=== PATIENT | male | born 1965 | race Caucasian/White ===

== ENCOUNTER 2018-06-15 14:40 | Inpatient (IN) | payer MEDICARE ==
[~2018-06-15] VITALS: Ht 182.9 cm; Wt 78.0 kg
--- NOTE | ~2018-06-15 | OP ---
PATIENT NAME: MINESH KOHLER MEDICAL RECORD: [id number] :65 LOCATION:D. D.2133 ADMISSION DATE:06/15/18 SURGEON: LAINEY SHANKAR MD DATE OF OPERATION: 06/20/2018 PREOPERATIVE DIAGNOSES: 1. 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 2. End-stage renal disease and dependence on hemodialysis. POSTOPERATIVE DIAGNOSES: 1. 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 2. End-stage renal disease and dependence on hemodialysis. OPERATION PERFORMED: Removal of Trialysis acute dialysis catheter from the right internal jugular vein and insertion of a 19-cm HemoSplit catheter via the right internal jugular vein under fluoroscopy with positioning the tip of the catheter in the right atrium. Examination of the left arm wound from recent surgery, removal of sutures, and ultrasound examination. SURGEON: Lainey Shankar MD ANESTHESIA: General per SU[employer]ACH. PREOPERATIVE NOTE: Mr. Kohler is a patient of Dr. Chicas in [place]. He has an Acuseal PTFE AV graft, brachial axillary in the left arm, which I implanted in August of last year. He had developed an area of ulceration and induration over the mid portion of his graft and was referred to Dr. Judge at [facility]. Dr. Judge placed a Trialysis catheter in the right internal jugular vein and then very shortly after that addressed the fistula when it ruptured at the site of ulceration. I cannot obtain any records from [facility], which describe exactly what Dr. Judge did to the fistula. There is no operative note. I assume that he removed the ruptured segment and probably ligated or closed the graft proximal and distal to that, but I do not know for certain. At this time, there is no evidence visually or palpably of residual infection or fluid collections in the area. The wound appears to be healing well. Under anesthesia in supine position, the patient was prepped and draped in sterile manner. I removed the Trialysis catheter over a guidewire under fluoroscopy and passed dilators over the guidewire. I chose a 19-cm HemoSplit catheter and identified a satisfactory exit site below the clavicle and pulled the catheter through a subcutaneous tunnel up to the cervical incision and then I inserted a dilator peel-away sheath and then lastly the HemoSplit catheter was inserted and its tip positioned in the right atrium and the Dacron felt cuff midway in the subcutaneous tunnel. The catheter was accessed. Both lumens returned blood easily. They flushed quite easily with saline as well and they were heparin locked with 100 unit per cc heparin. The catheter was sutured to the skin near the entry site with 2-0 Prolene. The cervical incision was closed with a single interrupted inverted 3-0 Vicryl and Dermabond glue and it was dressed with Maxorb Ag, Tegaderm, and Cavilon skin prep. The catheter exit site was dressed with a chlorhexidine Biopatch and a standard CVL dressing. Next, attention was turned to the left arm. The sutures were removed and the residual wound examined closely. It was just a shallow area granulated wound, which is not yet epithelialized. It appears to be healing well and there is no evidence of infection. There is no significant palpable induration or sign of OPERATIVE REPORT [id number] MINESH KOHLER fluid collections. I then examined the fistula with a duplex ultrasound and noted that there was about a 10 cm length of AV graft that was underlying the healing incision. That segment is absent and I assume was totally removed by Dr. Judge. The venous and arterial limbs remain in place and there is no flow. The arterial limb is seen taking origin from the cuff of an old brachiocephalic fistula, so there is a nice venous cuff therefore new graft to take origin from. The venous anastomosis was easily seen where the PTFE is attached to the axillary vein. I then dressed the area of ulceration with Maxorb Ag, Tegaderm, and Cavilon skin prep and the patient was awakened and taken to the recovery room. PLAN: The patient should continue his present course of vancomycin and may go home when okay with nephrology. He will be dialyzing for the next while several weeks with his new HemoSplit catheter. When his Zosyn is discontinued, he can be started on chronic tetracycline therapy. I would like him to be discharged on doxycycline 50 mg once daily for an indefinite period of time as one might treat an acne patient. I also want him to bathe daily with Hibiclens and wash the area of the wound to the left arm with Hibiclens daily for 2 weeks. I told him to apply Bactroban ointment to his nares and to the wound b.i.d. I would like to see him back in my office in 3 weeks and hopefully at that time, his MRSA screen will be negative and we can admit him or bring him back to the operating room for a new access procedure. I think his next access will likely be a biologic such as a ProCol or Artegraft placed in the left arm with the arterial anastomosis to the old cephalic vein cuff and the venous anastomosis as close as possible to the axillary vein itself as I want to remove all of the remaining original PTFE graft. Blood loss during the operation was trivial about 5 cc, was unreplaced. Sponges, instruments and needles were accounted for. No drain was used and no surgical specimen was submitted for histopathology, but the tip of the Trialysis catheter was sent for culture. TRANSINT:[id number] Voice Confirmation ID: [id number] DOCUMENT ID: [id number] LAINEY SHANKAR MD at 1054 CC: LUIS QUICK MD [id number] DICTATION DATE: 06/20/18 1410 CLINICAL TRIAL ASSISTANT: 06/20/18 1441 DIS IN 06/21/18 [facility] [address] [place] [address]
[~2018-06-15 14:40] MED LIST: AVODART0.5 MG PO; COREG25 MG PO; COZAAR100 MG PO; FLOMAX0.4 MG PO; HYDRALAZINE HCL25 MG PO; HYDRALAZINE HCL50 MG PO; LIPITOR80 MG PO; MEGACE40 MG PO; NORVASC10 MG PO; OMEPRAZOLE40 MG PO; PHOSLO667 MG PO; PROTONIX40 MG PO; SENSIPAR30 MG PO; XALATAN 0.0052.5 ML EACH EYE; ZANTAC300 MG PO; ZITHROMAX250 MG PO; ZYLOPRIM100 MG PO
[2018-06-15 17:32] VITALS: BP 174/96; BMI 24.4
[2018-06-15 20:39] VITALS: BP 179/87
[2018-06-16] VITALS: BP 151/83
[2018-06-16 04:00] VITALS: BP 145/89
[2018-06-16 05:45] LABS: BASOPHILS 0.4 % (0-2); EOSINOPHILS 3.3 % (0-7); HEMATOCRIT 23.7 % (42.0-54.0); HEMOGLOBIN 7.8 g/dL (13.5-17.5); IMMATURE GRANULOCYTES 0.4 % (0-5); LYMPHOCYTES 15.7 % (15-50); MCH 25.7 pg (26.0-34.0); MCHC 32.9 g/dL (31.0-37.0); MEAN PLATELET VOLUME 9.5 fL (7.4-10.4); MONOCYTES 10.3 % (2-11); NEUTROPHILS 69.9 % (40-80); PLATELET COUNT 211 10x3/uL (130-400); RBC 3.04 10x6/uL (4.20-6.10); RDW 15.5 % (11.5-14.5); WBC 8.3 10x3/uL (4.8-10.8)
[2018-06-16 06:20] LABS: ANION GAP 18.4 mmol/L (8-16); CALCIUM 8.4 mg/dL (8.5-10.1); CARBON DIOXIDE 24.6 mmol/L (21.0-32.0); CREATININE - SERUM 12.8 mg/dL (0.6-1.3); VANCOMYCIN - RANDOM 34.4 ug/mL (10.0-20.0)
[2018-06-16 06:36] LABS: PHOSPHOROUS 11.3 mg/dL (2.5-4.9)
[2018-06-16 08:36] VITALS: BP 160/85
[2018-06-16 12:33] VITALS: BP 154/81
[2018-06-16 13:51] VITALS: BMI 23.8
[2018-06-16 17:21] VITALS: BP 156/90
[2018-06-16 21:09] VITALS: BP 165/94
[2018-06-17 05:50] VITALS: BP 154/90
[2018-06-17 06:20] LABS: BASOPHILS 0.7 % (0-2); EOSINOPHILS 3.9 % (0-7); HEMATOCRIT 25.3 % (42.0-54.0); HEMOGLOBIN 8.1 g/dL (13.5-17.5); IMMATURE GRANULOCYTES 0.3 % (0-5); LYMPHOCYTES 16.9 % (15-50); MCH 25.5 pg (26.0-34.0); MCV 79.6 fL (80.0-100.0); MEAN PLATELET VOLUME 8.8 fL (7.4-10.4); MONOCYTES 10.1 % (2-11); NEUTROPHILS 68.1 % (40-80); PLATELET COUNT 210 10x3/uL (130-400); RBC 3.18 10x6/uL (4.20-6.10); RDW 15.6 % (11.5-14.5); WBC 7.1 10x3/uL (4.8-10.8)
[2018-06-17 06:54] LABS: ALBUMIN 2.4 g/dL (3.4-5.0); ANION GAP 13.8 mmol/L (8-16); BILIRUBIN - TOTAL 0.34 mg/dL (0.2-1.3); CALCIUM 8.6 mg/dL (8.5-10.1); CARBON DIOXIDE 24.9 mmol/L (21.0-32.0); CREATININE - SERUM 11.1 mg/dL (0.6-1.3); POTASSIUM - SERUM 4.7 mmol/L (3.5-5.1); PROTEIN - SERUM 7.6 g/dL (6.4-8.2)
[2018-06-17 06:56] LABS: PHOSPHOROUS 10.1 mg/dL (2.5-4.9)
[2018-06-17 07:30] LABS: % SATURATION 22 % (15-55); IRON 32 ug/dl (35-150); TOTAL IRON BIND CAPACITY 140 ug/dl (260-445); UNSAT IRON BIND CAPACITY 108 ug/dl (150-375)
[2018-06-17 08:25] VITALS: BP 166/90
[2018-06-17 11:38] VITALS: BP 147/83
[2018-06-17 15:22] VITALS: BP 168/91
[2018-06-17 20:22] VITALS: BP 145/84
[2018-06-18] VITALS: BP 158/96
[2018-06-18 06:35] VITALS: BP 166/89
[2018-06-18 06:49] LABS: BASOPHILS 0.8 % (0-2); EOSINOPHILS 3.8 % (0-7); HEMATOCRIT 24.3 % (42.0-54.0); HEMOGLOBIN 7.8 g/dL (13.5-17.5); IMMATURE GRANULOCYTES 0.4 % (0-5); LYMPHOCYTES 19.1 % (15-50); MCH 25.4 pg (26.0-34.0); MCHC 32.1 g/dL (31.0-37.0); MCV 79.2 fL (80.0-100.0); MEAN PLATELET VOLUME 8.7 fL (7.4-10.4); MONOCYTES 9.6 % (2-11); NEUTROPHILS 66.3 % (40-80); PLATELET COUNT 196 10x3/uL (130-400); RBC 3.07 10x6/uL (4.20-6.10); RDW 15.8 % (11.5-14.5); WBC 7.8 10x3/uL (4.8-10.8)
[2018-06-18 07:10] LABS: ALBUMIN 2.6 g/dL (3.4-5.0); ANION GAP 19.4 mmol/L (8-16); BILIRUBIN - TOTAL 0.32 mg/dL (0.2-1.3); CALCIUM 8.5 mg/dL (8.5-10.1); CARBON DIOXIDE 23.5 mmol/L (21.0-32.0); CREATININE - SERUM 12.9 mg/dL (0.6-1.3); POTASSIUM - SERUM 4.9 mmol/L (3.5-5.1); PROTEIN - SERUM 7.7 g/dL (6.4-8.2)
[2018-06-18 07:53] VITALS: BP 151/85
[2018-06-18 08:19] LABS: FOLATE (FOLIC ACID) - SERUM 18.2 ng/mL (>3.0)
[2018-06-18 11:57] VITALS: BP 174/89
[2018-06-18 15:20] VITALS: BP 150/89
[2018-06-19 00:29] VITALS: BP 152/80
[2018-06-19 05:06] VITALS: BP 165/87
[2018-06-19 06:48] LABS: BASOPHILS 0.7 % (0-2); EOSINOPHILS 3.9 % (0-7); HEMATOCRIT 23.3 % (42.0-54.0); IMMATURE GRANULOCYTES 0.1 % (0-5); LYMPHOCYTES 18.9 % (15-50); MCH 25.8 pg (26.0-34.0); MCHC 32.2 g/dL (31.0-37.0); MCV 80.1 fL (80.0-100.0); MEAN PLATELET VOLUME 8.6 fL (7.4-10.4); MONOCYTES 6.6 % (2-11); NEUTROPHILS 69.8 % (40-80); PLATELET COUNT 196 10x3/uL (130-400); RBC 2.91 10x6/uL (4.20-6.10); RDW 16.2 % (11.5-14.5); WBC 7.6 10x3/uL (4.8-10.8)
[2018-06-19 06:50] LABS: HEMOGLOBIN 7.5 g/dL (13.5-17.5)
[2018-06-19 07:23] LABS: ALBUMIN 2.4 g/dL (3.4-5.0); BILIRUBIN - TOTAL 0.3 mg/dL (0.2-1.3); CALCIUM 8.1 mg/dL (8.5-10.1); POTASSIUM - SERUM 5.2 mmol/L (3.5-5.1); PROTEIN - SERUM 7.4 g/dL (6.4-8.2)
[2018-06-19 07:26] LABS: ANION GAP 14.6 mmol/L (8-16); CARBON DIOXIDE 29.6 mmol/L (21.0-32.0); PHOSPHOROUS 10.8 mg/dL (2.5-4.9)
[2018-06-19 08:43] VITALS: BP 157/82
[2018-06-19 13:40] VITALS: BP 147/91
[2018-06-19 16:50] VITALS: BP 172/93
[2018-06-19 17:33] VITALS: Ht 182.9 cm; Wt 78.0 kg
[2018-06-19 21:17] VITALS: BP 171/86
[2018-06-20 00:28] VITALS: BP 125/83
[2018-06-20 04:07] VITALS: BP 174/94
[2018-06-20 05:14] LABS: BASOPHILS 0.5 % (0-2); EOSINOPHILS 4.3 % (0-7); HEMATOCRIT 24.2 % (42.0-54.0); HEMOGLOBIN 7.7 g/dL (13.5-17.5); IMMATURE GRANULOCYTES 0.1 % (0-5); LYMPHOCYTES 20.9 % (15-50); MCH 25.6 pg (26.0-34.0); MCHC 31.8 g/dL (31.0-37.0); MCV 80.4 fL (80.0-100.0); MEAN PLATELET VOLUME 8.6 fL (7.4-10.4); NEUTROPHILS 67.2 % (40-80); PLATELET COUNT 202 10x3/uL (130-400); RBC 3.01 10x6/uL (4.20-6.10); RDW 16.3 % (11.5-14.5); WBC 7.4 10x3/uL (4.8-10.8)
[2018-06-20 05:39] LABS: ALBUMIN 2.4 g/dL (3.4-5.0); ANION GAP 18.3 mmol/L (8-16); BILIRUBIN - TOTAL 0.25 mg/dL (0.2-1.3); CALCIUM 8.4 mg/dL (8.5-10.1); CARBON DIOXIDE 26.6 mmol/L (21.0-32.0); CREATININE - SERUM 12.3 mg/dL (0.6-1.3); POTASSIUM - SERUM 5.9 mmol/L (3.5-5.1); PROTEIN - SERUM 7.4 g/dL (6.4-8.2)
[2018-06-20 07:00] VITALS: BP 171/97
[2018-06-20 21:56] VITALS: BP 118/80
[2018-06-21 05:42] VITALS: BP 179/96
[2018-06-21 05:47] LABS: BASOPHILS 0.5 % (0-2); EOSINOPHILS 3.4 % (0-7); HEMATOCRIT 23.8 % (42.0-54.0); HEMOGLOBIN 7.6 g/dL (13.5-17.5); IMMATURE GRANULOCYTES 0.2 % (0-5); LYMPHOCYTES 15.2 % (15-50); MCH 25.5 pg (26.0-34.0); MCHC 31.9 g/dL (31.0-37.0); MCV 79.9 fL (80.0-100.0); MEAN PLATELET VOLUME 8.5 fL (7.4-10.4); MONOCYTES 6.4 % (2-11); NEUTROPHILS 74.3 % (40-80); PLATELET COUNT 215 10x3/uL (130-400); RBC 2.98 10x6/uL (4.20-6.10); RDW 16.6 % (11.5-14.5); WBC 8.2 10x3/uL (4.8-10.8)
[2018-06-21 06:07] LABS: ALBUMIN 2.5 g/dL (3.4-5.0); ANION GAP 17.2 mmol/L (8-16); BILIRUBIN - TOTAL 0.35 mg/dL (0.2-1.3); CALCIUM 8.8 mg/dL (8.5-10.1); CARBON DIOXIDE 22.5 mmol/L (21.0-32.0); CREATININE - SERUM 13.5 mg/dL (0.6-1.3); PROTEIN - SERUM 7.5 g/dL (6.4-8.2)
[2018-06-21 06:24] LABS: PHOSPHOROUS 10.9 mg/dL (2.5-4.9); POTASSIUM - SERUM 6.7 mmol/L (3.5-5.1)
[2018-06-21 08:47] VITALS: BP 200/91
[2018-06-21] MEDS ORDERED: VIBRAMYCIN50 MG PO (09:48)
[2018-06-21] MEDS ORDERED: MUPIROCIN22 GM TOPICAL (09:48)
== END 2018-06-21 15:40 | disposition home or self-care, planned readmission (81) | DRG 674 ==
LOC: UNDOADMIN 14:40 → D.M2 14:40
PROVIDERS: Internal Medicine Nephrology; Surgery
PROC: 0JH63XZ Insertion of Tunneled Vascular Access Device into Chest Subcutaneous Tissue and Fascia, Percutaneous Approach (ICD-10-PCS; principal; 2018-06-20 12:00)
PROC: 05HM33Z Insertion of Infusion Device into Right Internal Jugular Vein, Percutaneous Approach (ICD-10-PCS; 2018-06-20 12:00)
DX: N18.6 End stage renal disease (principal); T82.7XXA Infection and inflammatory reaction due to other cardiac and vascular devices, implants and grafts, initial encounter; Z99.2 Dependence on renal dialysis; I50.9 Heart failure, unspecified